=== PATIENT | male | born 1995 | race Caucasian/White ===

== ENCOUNTER → 2022-08-06 10:19 | Outpatient (CLI) | payer BC, SELFPAY ==
[2022-08-06 12:53] LABS: Cholesterol 221 mg/dL (140-199); HDL Cholesterol 46 mg/dL (40-60); LDL Cholesterol Calculated 161 mg/dL (<100); Triglycerides 72 mg/dL (35-150)
== END ==
PROVIDERS: PCP Family Medicine; Referring Provider Family Medicine; Visit Provider Family Medicine
DX: F98.8 Other specified behavioral and emotional disorders with onset usually occurring in childhood and adolescence (principal); K21.9 Gastro-esophageal reflux disease without esophagitis; Z80.0 Family history of malignant neoplasm of digestive organs
CPT/HCPCS: 36415; 80061